=== PATIENT | female | born 1975 | race Caucasian/White ===

== ENCOUNTER 2017-09-05 09:07 | Emergency (ER) | payer OTHER ==
[~2017-09-05] VITALS: Ht 170.2 cm; Wt 55.3 kg
[2017-09-05 09:52] VITALS: BP 149/100
== END 2017-09-05 10:23 | disposition home or self-care (01) ==
LOC: ER 09:07
DX: L25.9 Unspecified contact dermatitis, unspecified cause (principal); Z88.1 Allergy status to other antibiotic agents; Z88.8 Allergy status to other drugs, medicaments and biological substances

== ENCOUNTER 2017-09-10 14:42 | Emergency (ER) | payer OTHER ==
[~2017-09-10] VITALS: Ht 170.2 cm; Wt 55.8 kg
[2017-09-10 17:06] VITALS: BP 148/94
== END 2017-09-10 17:05 | disposition home or self-care (01) ==
LOC: ER 14:42
DX: R21 Rash and other nonspecific skin eruption (principal); M79.89 Other specified soft tissue disorders; Z48.01 Encounter for change or removal of surgical wound dressing; Z88.8 Allergy status to other drugs, medicaments and biological substances

== ENCOUNTER 2017-12-24 17:09 | Emergency (ER) | payer OTHER ==
[~2017-12-24] VITALS: Ht 170.2 cm; Wt 56.2 kg
[2017-12-24 17:22] VITALS: BP 125/95
== END 2017-12-24 21:04 | disposition home or self-care (01) ==
LOC: ER 17:09
DX: J40 Bronchitis, not specified as acute or chronic (principal)
CPT/HCPCS: 71046

== ENCOUNTER 2018-03-15 17:26 | Emergency (ER) | payer OTHER ==
[~2018-03-15] VITALS: Ht 170.2 cm; Wt 55.8 kg
[2018-03-15 17:39] VITALS: BP 127/76
== END 2018-03-15 20:12 | disposition left against medical advice (07) ==
LOC: ER 17:28
DX: H92.02 Otalgia, left ear (principal); K13.79 Other lesions of oral mucosa; Z53.21 Procedure and treatment not carried out due to patient leaving prior to being seen by health care provider

== ENCOUNTER 2018-04-04 11:42 | Emergency (ER) | payer OTHER ==
[~2018-04-04] VITALS: Ht 170.2 cm; Wt 56.2 kg
[2018-04-04 15:05] VITALS: BP 130/83
== END 2018-04-04 15:11 | disposition home or self-care (01) ==
LOC: ER 11:43
DX: H60.92 Unspecified otitis externa, left ear (principal); F17.210 Nicotine dependence, cigarettes, uncomplicated; I25.2 Old myocardial infarction; Z85.850 Personal history of malignant neoplasm of thyroid; Z88.1 Allergy status to other antibiotic agents